=== PATIENT | male | born 2000 | race Hispanic/Latino ===

== ENCOUNTER 2024-05-03 18:23 | Emergency (ER) | payer SELFPAY ==
[~2024-05-03] VITALS: Ht 172.7 cm; Wt 97.5 kg
[2024-05-03 18:25] VITALS: BP 139/96; PULSE 99; RESP 16; TEMP 98
--- NOTE | 2024-05-03 18:42 | ERN ---
ED Note History of Present Illness Stated Complaint: LEFT 5TH DIGIT INJURY Chief Complaint: Finger Injury Time Seen by MD: 18:33 Time Seen by Midlevel: 18:33 Dictation: The patient is a 23-year-old male with no past medical history who presents to the emergency department complaints of left 5th digit pain and swelling after injuring it during a basketball game. No other injuries reported. Allergies: Coded Allergies: No Known Drug Allergies (Unverified Allergy, Unknown, 05/03/24) Past Medical History Past Medical History: No Pertinent History Surgical History: None RN Note Reviewed/Agreed w/PFSH: Yes Review of System Dictation Constitutional: Negative for fever,chills, and weight loss Eyes: Negative for injury, pain,redness, and discharge ENT: Negative for injury,pain or swelling Cardiovascular: Negative for chest pain, palpitations, and edema Respiratory: Negative for shortness of breath, cough, and wheezing, Abdomen/GI: Negative for abdominal pain, nausea, vomiting, diarrhea, and constipation Back: Negative for injury and pain : Negative for injury, bleeding and discharge MS/Extremity: Positive for left 5th digit pain Skin: Negative for rash, and discoloration Neuro: Negative for headache, weakness, numbness, tingling, and seizure Psych: Negative for suicide ideation, homicidal ideation, and hallucinations Initial Vital Sign VS Vital Signs Date Time Temp Pulse Resp B/P (MAP) Pulse Ox O2 Delivery O2 Flow Rate FiO2 05/03/24 18:25 98.1 99 16 139/96 100 Room Air 0 Physical Exam Dictation Vital Signs reviewed General Appearance: Alert, oriented x 3, no acute distress, well developed, nourished. Head and Face: non-traumatic. Eyes: PERRL, pink conjunctivas, eyelid no trauma, anterior chamber with arcus senilis. Ears: Pinnas intact and no signs of trauma or erythema ear canals clear and no d ischarge TM no erythema Nose: No discharge, no bleeding. Oropharynx: Mouth normal, tongue pink. pharynx clear,no erythema, tonsils no exudates, no abscesses noted, mucous membrane moist Neck: Supple, non-tender, no thyromegaly, no masses, no JVD, no bruits Breast:Deferred Chest:No tenderness, no crepitus, no paradoxical movement, no retractions Lungs:Clear, well-ventilated, symmetric, no rales, no wheezing, no rhonchi, no stridor, good breath sounds bilaterally Heart: Regular rate, regular rhythm, no murmur, no gallops Vascular: no peripheral edema, Abdomen: Soft, positive bowel sounds, nondistended, no guarding, nontender, no rebound, no masses no hepatomegaly, no splenomegaly, no Barrow's sign, no hernias. Rectal: Deferred Genital: Deferred Neurological: Normal speech, motor function intact, sensory function intact Musculoskeletal: Neck nontender, full range of motion, back nontender, full range of motion, Extremities: nontender, full range of motion , left 5th digit with swollen, no obvious deformity, cap refill less than 2 seconds, decreased range of motion due to swelling Skin: Color pink, dry, no turgor, no rash, no lacerations, no abrasions, no contusions. Lymphatic: Deferred Results (Laboratory/Radiology) Laboratory/Radiology REASON: swelling, injury ORDERING PHYSICIAN: SONIDO MIRANDA CRITICAL CARE NURSE PROCEDURE: FINGER LT - FINGER(S) 2+VWS LT FINGER(S) 2+VWS LT HISTORY: Swelling COMPARISON: None TECHNIQUE: 3 images of left fingers were obtained. FINDINGS: Minimal displaced fracture is seen involving the base of the fifth proximal phalanx. No dislocation is seen. There appears be nutrient vessel noted at the distal portion of the fourth proximal phalanx. Soft tissue swelling is seen. IMPRESSION: 1. Findings as described above. Labs Reviewed?: Yes ED Course ED Course Orders Procedure Category Date Status Time Finger(S) 2+Vws Lt RAD 05/03/24 Resulted 18:37 Ibuprofen 600 Mg PHA 05/03/24 Complete Tablet (Motrin) 19:00 Current Medications Medications (Trade) Dose Ordered Sig/Hugo Route PRN Reason Start Time Stop Time Status Last Admin Dose Admin Ibuprofen (moTRIN) 600 mg ONCE ONCE PO 05/03/24 19:00 05/03/24 19:01 DC Vital Signs Date Time Temp Pulse Resp B/P (MAP) Pulse Ox O2 Delivery O2 Flow Rate FiO2 05/03/24 18:25 98.1 99 16 139/96 100 Room Air 0 Medical Decision Making MDM The patient is a 23-year-old male with no past medical history who presents to the emergency department complaints of left 5th digit pain and swelling after injuring it during a basketball game. No other injuries reported. Xray showed Minimal displaced fracture is seen involving the base of the fifth proximal phalanx. Patient will be splinted and refereed for ortho. Patient in no distress, Differential diagnosis: Finger sprain, phalangeal fracture, cellulitis Need for hospitalization: Patient does not meet criteria for hospitalization. There are no social concerns with this patient. DX & DISP Disposition: Discharge Departure Impression: Primary Impression: Fracture of phalanx of finger of left hand Additional Impression: Fracture of phalanx of little finger Condition: Stable Additional Instructions: FOLLOW-UP WITH PRIMARY CARE PROVIDER IN 1 TO 2 DAYS. TAKE MEDICATIONS DIRECTED HERE IN THE EMERGENCY ROOM. OKAY TO CONTINUE HOME MEDICATIONS UNLESS OTHERWISE DISCUSSED DURING YOUR VISIT IN THE EMERGENCY ROOM TODAY. RETURN TO YOUR NEAREST EMERGENCY ROOM IF SYMPTOMS WORSEN OR IF THERE IS NO IMPROVEMENT. CALL 911 IF YOU NEED IMMEDIATE ASSISTANCE. TAKE TYLENOL OR MOTRIN [id number] NEEDED AND IF NO CONTRAINDICATIONS ARE PRESENT. INCREASE ORAL HYDRATION. A WOUND CULTURE OR URINE CULTURE WAS ORDERED HERE IN THE EMERGENCY ROOM DEPARTMENT PLEASE FOLLOW-UP WITH PRIMARY CARE PROVIDER AND ADVISE THEM TO GET REPEAT PORTS FROM OUR FACILITY. IF YOU HAD ANY LG WRAP/SPLINTS THAT WERE APPLIED HERE, PLEASE DO NOT REMOVE THEM UNTIL YOU SEE YOUR PRIMARY CARE OR SPECIALTY. Referrals: SELF,REFERRAL (PCP) TAPAN VALERIO MD Time of Disposition: 19:44 I have reviewed the case, and I agree with, Diagnosis and Plan SONIDO MIRANDA CRITICAL CARE NURSE May 03, 2024 18:42
--- NOTE | 2024-05-03 19:07 | HMCIMG ---
FINGER(S) 2+VWS LT HISTORY: Swelling COMPARISON: None TECHNIQUE: 3 images of left fingers were obtained. FINDINGS: Minimal displaced fracture is seen involving the base of the fifth proximal phalanx. No dislocation is seen. There appears be nutrient vessel noted at the distal portion of the fourth proximal phalanx. Soft tissue swelling is seen. IMPRESSION: 1. Findings as described above.
[2024-05-03] MEDS: ibuPROFEN 600 MG TABLET PO ONE (20:46)
== END 2024-05-03 21:17 | disposition home or self-care (01) ==
LOC: EDH 18:23
DX: S62.617A Displaced fracture of proximal phalanx of left little finger, initial encounter for closed fracture (principal); X58.XXXA Exposure to other specified factors, initial encounter; Y93.67 Activity, basketball; Y92.89 Other specified places as the place of occurrence of the external cause; Y99.8 Other external cause status
CPT/HCPCS: 29130; 73140; 99283

== ENCOUNTER 2024-07-13 18:59 | Emergency (ER) | payer SELFPAY ==
[~2024-07-13] VITALS: Ht 170.2 cm; Wt 94.8 kg
[~2024-07-13 18:59] MED LIST: FAMC500T8 PO; IBUP-2077 PO
[2024-07-13] MEDS ORDERED: FAMC500T8 PO (20:00)
[2024-07-13] MEDS ORDERED: IBUP-2070 PO (20:00)
--- NOTE | 2024-07-13 20:10 | ERN ---
ED Note History of Present Illness Stated Complaint: HERPES GINGIVOSTOMASTITIS,FEVER Chief Complaint: Blister/Cold Sore Time Seen by MD: 19:05 Time Seen by Midlevel: 19:40 Dictation: Mr. Lyle Baker is a 23-year-old male with no reported chronic health issues who presented to the emergency department this evening for evaluation of lip pain. He reports ulcerations to oral mucosa inner lower lip x2 days. He states he has a slightly sore throat/neck pain. He states that three months ago he had an outbreak of herpes/gingivostomatitis which progressed to febrile illness and was quite sick. He states that he would like to start antiviral therapy early to avoid this. He denies difficulty swallowing. He denies currently having any fever, chills, shortness of breath, cough, chest pain, palpitations, edema, abdominal pain, nausea, vomiting, diarrhea, dysuria, or headache. Allergies: Coded Allergies: No Known Drug Allergies (Unverified Allergy, Unknown, 05/03/24) Home Meds Active Scripts Ibuprofen (Ibuprofen) 600 Mg Tablet, 600 MG PO Q6H PRN for PAIN, #15 TAB Prov:ZOIE MCCULLOUGH [employer] 07/13/24 Famciclovir (Famciclovir) 500 Mg Tablet, 500 MG PO TID for 10 Days, #30 TAB 0 Refills Prov:ZOIE MCCULLOUGH [employer] 07/13/24 Ibuprofen (Ibuprofen 800 mg Tab) 800 Mg Tab, 800 MG PO Q8H PRN for fever or pain, #30 TAB 0 Refills Prov:JULIET SANCHEZ [employer] 05/17/24 Famciclovir (Famciclovir) 500 Mg Tablet, 500 MG PO TID for 7 Days, #21 TAB Prov:JULIET SANCHEZ [employer] 05/17/24 Past Medical History Past Medical History: No Pertinent History Surgical History: None PSYCH History: no pertinent psych hx Social History: Negative, Lives with family RN Note Reviewed/Agreed w/PFSH: Yes Review of System Dictation REVIEW OF SYSTEMS: CONSTITUTIONAL: Patient denies fevers, chills, sweats and weight changes. EYES: Patient denies any visual symptoms. EARS, NOSE, AND THROAT: No difficulties with hearing. No symptoms of rhinitis reports sore throat and swollen lymph nodes in his neck. He denies difficulty swallowing. Reports ulcerations to inside of his lower lip. CARDIOVASCULAR: Patient denies chest pains, palpitations, orthopnea and paroxysmal nocturnal dyspnea. RESPIRATORY: No dyspnea on exertion, no wheezing or cough. GI: No nausea, vomiting, diarrhea, constipation, abdominal pain, hematochezia or melena. : No urinary hesitancy or dribbling. No nocturia or urinary frequency. No abnormal urethral discharge. MUSCULOSKELETAL: No myalgias or arthralgias. NEUROLOGIC: No chronic headaches, no seizures. Patient denies numbness, tingling or weakness. PSYCHIATRIC: Patient denies problems with mood disturbance. No problems with a nxiety. ENDOCRINE: No excessive urination or excessive thirst. DERMATOLOGIC: Patient denies any rashes or skin changes. Initial Vital Sign VS Vital Signs Date Time Temp Pulse Resp B/P (MAP) Pulse Ox O2 Delivery O2 Flow Rate FiO2 07/13/24 19:46 98.6 101 18 135/93 97 Room Air Physical Exam Dictation Vital signs: Reviewed. Afebrile Constitutional: No acute distress. Non-toxic appearing. Head/Face: Normocephalic, atraumatic. Eyes: Periorbital areas with no swelling, redness, or edema. Lids and lashes are normal. Conjunctival injection is absent. Sclera anicteric. Pupils equal, round, reactive to light. ENT: Pinnas intact and no signs of trauma or erythema. Ear canals clear and no discharge. TMs no erythema. No nasal discharge or bleeding noted. Oropharynx erythema; no swelling, masses, exudates, or evidence of obstruction. Uvula midline. Mucous membranes moist. Neck: Trachea midline, no masses palpated. No swelling. Supple, full range of motion. Anterior cervical lymphadenopathy Chest/Axilla: No tenderness, no crepitus, no paradoxical movement, no retract ions. Cardiovascular: Regular rate, regular rhythm, no murmur, no gallops. Symmetric pulses. No peripheral edema. Respiratory: Respirations even and unlabored. Lung sounds clear; no wheezes, rales or rhonchi. Room air SpO2 99% Gastrointestinal: Inspection is normal. No distention is appreciated. Bowel sounds are normal. No mass or organomegaly . There is no tenderness. No rebound. No rigidity. No voluntary or involuntary guarding. No Barrow's sign. Neurological: Normal speech, gross motor function intact, gross sensory function intact. No focal weakness/Paresthesia. Musculoskeletal/Extremities: All extremities have full range of motion, no pain or tenderness on palpation. Symmetric pulses. Integumentary: Intact. Skin is normal color, warm and dry. Cap refill less than 2 seconds. Results (Laboratory/Radiology) Laboratory/Radiology Laboratory Tests Test 07/13/24 19:59 Group A Streptococcus Rapid negative (NEGATIVE) ED Course ED Course Orders Procedure Category Date Status Time Rapid (Group A Strep) LAB 07/13/24 Complete 19:58 Vital Signs Date Time Temp Pulse Resp B/P (MAP) Pulse Ox O2 Delivery O2 Flow Rate FiO2 07/13/24 19:46 98.6 101 18 135/93 97 Room Air Uneventful ED course. Vital signs stable; afebrile with room air SpO2 97%. Patient has no difficulty swallowing. Rapid strep screen negative. Patient will begin famciclovir for oral lesions. Medical Decision Making MDM MDM: Differential diagnosis: Stomatitis, herpetic gingivostomatitis, strep sore throat Rationale: Tests considered and ordered secondary to shared decision making include: Rapid strep screen Previous outside records reviewed: Old ER visits. Risk of complication and/or morbidity or mortality of patient management: None Medications-Per medication reconciliation Need for hospitalization: Patient does not meet criteria for hospitalization. Need for emergency major/minor surgery: No There are no social concerns with this patient. Prescription drug management: Ibuprofen, famciclovir Prescriptions will include symptomatic care Patient's prior external medical records from other ER visits were reviewed by me as indicated. Prior testing and results from previous visits were reviewed. Prior tests were taken into account with medical decision making and resource utilization, independent historian/historians were used to obtain complete medical history. I independently interpreted the test that were performed, results were reviewed by me and considered findings on radiology if ordered. Medical management and examination interpretation discussions were had by me with other qualified healthcare professionals as indicated for the patient's care. DX & DISP Disposition: Discharge Departure Impression: Primary Impression: Stomatitis and mucositis Additional Impressions: Viral illness, Herpes gingivostomatitis, Sore throat Condition: Stable Scripts Ibuprofen (Ibuprofen) 600 Mg Tablet 600 MG PO Q6H PRN for PAIN, #15 TAB Prov: ZOIE MCCULLOUGH [employer] 07/13/24 Famciclovir (Famciclovir) 500 Mg Tablet 500 MG PO TID for 10 Days, #30 TAB 0 Refills Prov: ZOIE MCCULLOUGH NP 07/13/24 Additional Instructions: warm salt water rinses twice daily. When symptoms have resolved change out your toothbrush. Start Famciclovir three times daily x 10 days. May take Ibuprofen every 6 hours PRN for pain/fever. Follow up with your PCP. Return to the emergency department for any worsening of symptoms or concerns. Referrals: SELF,REFERRAL (PCP) Time of Disposition: 20:02 ZOIE MCCULLOUGH NP Jul 13, 2024 20:10
[2024-07-13 21:07] VITALS: BP 138/88; PULSE 101; RESP 20; TEMP 98.5; O2SAT 97
== END 2024-07-13 21:20 | disposition home or self-care (01) ==
LOC: EDH 18:59
DX: K12.1 Other forms of stomatitis (principal); K12.30 Oral mucositis (ulcerative), unspecified; B00.1 Herpesviral vesicular dermatitis; K05.10 Chronic gingivitis, plaque induced; J02.9 Acute pharyngitis, unspecified; Z79.624 Long term (current) use of inhibitors of nucleotide synthesis
CPT/HCPCS: 87880; 99283